=== PATIENT | female | born 1960 | race Caucasian/White ===

== ENCOUNTER 2018-02-13 19:58 | Emergency (ER) | payer BC ==
[2018-02-13] MEDS ORDERED: Lidocaine 2% 5 ML SDV INFILT ONE (19:59)
--- NOTE | 2018-02-13 20:10 | EDM.PDOC ---
ED HPI GENERAL MEDICAL PROBLEM - General Chief Complaint: Trauma Stated Complaint: RT PINKY DISLOCATED Time Seen by Provider: 02/13/18 19:58 Source of Information: Reports: Patient, Family History Limitations: Reports: Other (strong ETOH oder ) - History of Present Illness INITIAL COMMENTS - FREE TEXT/NARRATIVE: 57 y.o.w.morro came to the ed with her SO after she fell down the stairs - intoxicated- and injured her right 5th finger. Her right finger was deformed and she had pain moving it. She had an abrasion at her right forearm as well. Pt as registered at the ed in [place] but did not want to wait and came to our ed instead. Pt admitted she was drinking. No N/V/D or any other acute medical issues. BP 138/68 Pulse ox 97% on RA Temp 37.2 Pulse 91 Onset Date: 02/13/18 Onset Time: 17:00 Duration: Hour(s):, Constant Location: Reports: Upper Extremity, Right Quality: Reports: Ache, Burning, Dull, Stabbing Severity: Mild Improves with: Reports: Rest Worsens with: Reports: Movement Context: Reports: Trauma Associated Symptoms: Reports: Other (pt is intoxicated) Right 5-Little finger Pain Score (Numeric/FACES): 10 - Related Data Allergies Allergy/AdvReac Type Severity Reaction Status Date / Time No Known Allergies Allergy Verified 08/04/13 16:08 Review of Systems - Review of Systems Review Of Systems: Unable To Obtain ED EXAM, GENERAL - Physical Exam Exam: See Below Exam Limited By: Intoxication General Appearance: Alert, Mild Distress, Thin Eye Exam: Bilateral Eye: Normal Inspection Ears: Normal External Exam Ear Exam: Bilateral Ear: Auricle Normal Nose: Normal Inspection, Normal Mucosa, No Blood Throat/Mouth: Normal Inspection, Normal Lips, Normal Gums, Normal Voice, No Airway Compromise Head: Atraumatic, Normocephalic Neck: Normal Inspection, Supple Respiratory/Chest: No Respiratory Distress, Lungs Clear, Normal Breath Sounds, No Accessory Muscle Use, Chest Non-Tender Cardiovascular: Normal Peripheral Pulses, Regular Rate, Rhythm, No Edema, No Gallop, No JVD, No Murmur, No Rub Peripheral Pulses: 1+: Brachial (R) GI/Abdominal: Normal Bowel Sounds, Soft, Non-Tender, No Organomegaly (Female) Exam: Deferred Rectal (Female) Exam: Deferred Back Exam: Normal Inspection, Full Range of Motion Extremities: No Pedal Edema, Normal Capillary Refill, Other (dislocated R little finger) Neurological: Alert, Oriented, CN II-XII Intact, Normal Gait, No Motor/Sensory Deficits Psychiatric: Normal Affect, Normal Mood, Other (strong ETOH odor) Skin Exam: Warm, Dry, Normal Color, Other (abrasion right forearm) Lymphatic: No Adenopathy ED TRAUMA PROCEDURES - Joint Reduction Site: Finger (R) Sedation: Digital Block Local Anesthesia - Lidocaine (Xylocaine): 2% Plain Local Anesthetic Volume: 2cc Pre-Procedure NV Status: Normal Post-Procedure NV Status: Normal Technique: Traction/Counter Traction Number of Attempts: 1 Post-Reduction Imaging: Completely Reduced, No Fracture Seen Joint Reduction Complications: No Course - Vital Signs Text/Narrative:: 57 y.o.w.f came to the ed with her SO after she fell down the stairs - intoxicated- and injured her right 5th finger. Her right finger was deformed and she had pain moving it. She had an abrasion at her right forearm as well. Pt as registered at the ed in [place] but did not want to wait and came to our ed instead. Pt admitted she was drinking. No N/V/D or any other acute medical issues. BP 138/68 Pulse ox 97% on RA Temp 37.2 Pulse 91 PE: Thin 57 y.o.w.f with ETOH odor presents witha dislocated right 5th finger Imaging: Right hand: Dislocated right 5th prox phalanx right hand. Post reduction X ray: 5th finger in good position Procedure note: Please see above Impression: Reduction of right 5th finger, ETOH odor Tx: finger splint, wound care Reexam: Improved Plan: Discharged with instructions with SO Last Recorded V/S: Last Vital Signs Temp 37.2 C 02/13/18 20:00 Pulse 98 02/13/18 20:00 Resp 16 02/13/18 20:00 BP 138/68 02/13/18 20:00 Pulse Ox 97 02/13/18 20:00 - Orders/Labs/Meds Orders: Active Orders 24 hr Category Date Time Status Splinting [RC] ASDIRECTED Care 02/13/18 20:30 Active Vaccines to be Administered [RC] PER UNIT ROUTINE Care 02/13/18 21:17 Active Fingers Fifth Digit Rt F9 [CR] Stat Exams 02/13/18 20:08 Taken Fingers Fifth Digit Rt F9 [CR] Stat Exams 02/13/18 20:29 Taken Meds: Medications Discontinued Medications Generic Name Dose Route Start Last Admin Trade Name Amy PRN Reason Stop Dose Admin Diphtheria/Tetanus/Acell Pertussis 0.5 ml 02/13/18 21:16 02/13/18 21:23 Adacel IM 02/13/18 21:17 0.5 ml .ONCE ONE Administration Departure - Departure Time of Disposition: 21:00 Disposition: Home, Self-Care 01 Condition: Good Clinical Impression: Dislocated finger - Discharge Information Instructions: Finger or Thumb Dislocation, [id number] Referrals: Ankita Cuellar [employer] [Primary Care Provider] - Forms: ED Department Discharge Additional Instructions: Ice, rest and elevation, keep splin on for 2-3 days, F/U come back if your symptoms get worse acutely - My Orders Last 24 Hours: My Active Orders 02/13/18 20:08 Fingers Fifth Digit Rt F9 [CR] Stat 02/13/18 20:29 Fingers Fifth Digit Rt F9 [CR] Stat 02/13/18 20:30 Splinting [RC] ASDIRECTED 02/13/18 21:17 Vaccines to be Administered [RC] PER UNIT ROUTINE - Assessment/Plan Last 24 Hours: My Active Orders 02/13/18 20:08 Fingers Fifth Digit Rt F9 [CR] Stat 02/13/18 20:29 Fingers Fifth Digit Rt F9 [CR] Stat 02/13/18 20:30 Splinting [RC] ASDIRECTED 02/13/18 21:17 Vaccines to be Administered [RC] PER UNIT ROUTINE
[2018-02-13] MEDS ORDERED: Diphtheria,Pertussis(Acell),Tetanus Vaccine 0.5 ML SDV IM ONE (21:16)
--- NOTE | 2018-02-15 12:06 | CR ---
INDICATION: Trauma. RIGHT 5TH FINGER: Five images of the right 5th finger in multiple projections revealed dislocation at the PIPJ of the 5th finger. A definite fracture site was not identified. No other bone or joint abnormality was seen. IMPRESSION: Dislocation at PIPJ of 5th finger. MTDD
--- NOTE | 2018-02-15 12:07 | CR ---
INDICATION: Post reduction after trauma. RIGHT 5TH FINGER: Three views of the right 5th finger revealed the previous dislocation at the PIPJ of the 5th finger to be completely reduced, without a definite fracture or dislocation identified. SHINED
== END 2018-02-13 21:30 | disposition home or self-care (01) ==
LOC: FB.ED 19:58
DX: S63.286A Dislocation of proximal interphalangeal joint of right little finger, initial encounter (principal); S50.811A Abrasion of right forearm, initial encounter; W11.XXXA Fall on and from ladder, initial encounter; Z23 Encounter for immunization
CPT/HCPCS: 26770; 29130; 73140-F9; 90471; 90715; 99283